=== PATIENT | male | born 1950 | race Hispanic/Latino ===

== ENCOUNTER → 2019-08-17 | Outpatient (CLI) | payer MEDICARE ==
--- NOTE | 2019-08-18 09:22 | Diagnostic Imaging Report ---
PROCEDURE: X-RAY MODIFIED BARIUM SWALLOW COMPARISON: None. INDICATION: Aspiration Radiation Details: Fluoroscopy time: 1.6 minutes Cumulative dose: 2.9 mGy DISCUSSION: Fluoroscopic examination was performed in conjunction with speech pathology during swallowing a variety of thin and thick liquid consistencies. Provided images demonstrate laryngeal penetration and aspiration. CONCLUSION: Modified barium swallow demonstrating laryngeal penetration and aspiration. Please refer to the speech pathology report for further details. Signed by: Iliana Dsouza MD on 08/18/2019 9:19 AM
== END ==
LOC: DX 12:56
PROVIDERS: ATTEND Otolaryngology
DX: K21.0 Gastro-esophageal reflux disease with esophagitis (principal)
CPT/HCPCS: 74230

== ENCOUNTER 2019-11-08 13:03 | Outpatient (RCR) | payer MEDICARE | END 2019-11-26 | LOC: ST 13:03 | PROVIDERS: ATTEND Internal Medicine Gastroenterology | DX: K21.9 Gastro-esophageal reflux disease without esophagitis (principal); R13.13 Dysphagia, pharyngeal phase ==

== ENCOUNTER → 2019-11-10 | Outpatient (CLI) | payer MEDICARE ==
--- NOTE | 2019-11-10 14:36 | Diagnostic Imaging Report ---
EXAM: MODIFIED BA. SWALLOW DATE: 11/10/2019 1:07 PM INDICATION: Dysphagia Fluoroscopy Time: 1.4 min. Reference Air Kerma (Ka, r): 7.29 mGy. FINDINGS/IMPRESSION: Modified barium swallow was performed by the speech pathologist. Radiologist was not present during the evaluation. Please refer to the speech pathology report for further details. Signed by: Dr. Reinaldo Aguilar MD on 11/10/2019 2:33 PM
== END ==
LOC: DX 12:58
PROVIDERS: ATTEND Internal Medicine Gastroenterology
DX: R13.13 Dysphagia, pharyngeal phase (principal)
CPT/HCPCS: 74230